=== PATIENT | female | born 1940 | race Caucasian/White ===

== ENCOUNTER → 2019-09-21 | Outpatient (CLI) | payer OTHER ==
[~2019-09-21] MED LIST: LIDOCAINE 2%HCL (LOCAL ANESTH.) INJ 20ML MDV ONE
== END | disposition home or self-care (01) ==
LOC: US 10:58
PROVIDERS: ATTEND Internal Medicine
DX: N63.0 Unspecified lump in unspecified breast (principal)

== ENCOUNTER → 2019-09-29 | Outpatient (CLI) | payer OTHER ==
[~2019-09-29] MED LIST changes: +FLUMAZENIL 0.1 MG/ML INJ 10ML MDV IV ONE; -LIDOCAINE 2%HCL (LOCAL ANESTH.) INJ 20ML MDV ONE; +MIDAZOLAM HCL 1MG/1ML-2 ML VIAL IV ONE; +NALOXONE HCL 0.4 MG/ML VIAL IV ONE; +fentaNYL CITRATE 100 MCG/2 ML VL IV ONE; +hydrALAZINE HCL 20 MG/ML VL ONE
== END | disposition home or self-care (01) ==
LOC: US 09:19
PROVIDERS: ATTEND Internal Medicine
DX: C50.512 Malignant neoplasm of lower-outer quadrant of left female breast (principal); C50.612 Malignant neoplasm of axillary tail of left female breast; Z17.0 Estrogen receptor positive status [ER+]
CPT/HCPCS: 19083; 38505; 88305; 88309; 88341; 88342; J0360; J2250; J3010; 10022; 76942; 99152; 99153